=== PATIENT | female | born 1955 | race Caucasian/White ===

== ENCOUNTER → 2017-02-01 | Outpatient (CLI) | payer OTHER | LOC: FIMAGING 08:03 | PROVIDERS: ATTEND Physical Medicine & Rehabilitation | DX: M46.1 Sacroiliitis, not elsewhere classified (principal); M51.36 Other intervertebral disc degeneration, lumbar region; M51.26 Other intervertebral disc displacement, lumbar region; R60.0 Localized edema ==

== ENCOUNTER → 2017-02-08 | Outpatient (CLI) | payer OTHER | LOC: FIMAGING 14:18 | PROVIDERS: ATTEND Physical Medicine & Rehabilitation | DX: M81.0 Age-related osteoporosis without current pathological fracture (principal) ==

== ENCOUNTER 2017-04-16 10:31 | Observation (INO) | payer OTHER ==
[2017-04-16] MEDS ORDERED: ONDANSETRON 4 MG/2 ML VIAL IVP ONE (10:45)
[2017-04-16] MEDS ORDERED: ONDANSETRON 4 MG/2 ML VIAL ONE (10:45)
--- NOTE | 2017-04-16 10:45 | EDPHY ---
H & P Stated Complaint: Pain under left shoulder blade, N/V Source: Patient Exam Limitations: No limitations - Personal History Current Tetanus Diphtheria and Acellular Pertussis (TDAP): Yes - Medical/Surgical History Hx Asthma: No Hx Chronic Respiratory Disease: No Hx Diabetes: No Hx Cardiac Disease: No Hx Renal Disease: No Hx Cirrhosis: No Hx Alcoholism: No Hx HIV/AIDS: No Hx Splenectomy or Spleen Trauma: No Other PMH: reflux Asthma - Social History Smoking Status: Never smoked HPI/ROS: CHIEF COMPLAINT: Back pain HISTORY OF PRESENT ILLNESS: Patient complains of sudden onset of pain on the left scapula. This happened within the past hour. This was while at a chiropractor appointment, having acupuncture and adjustments performed. Adjustments on the thoracolumbar spine but not the cervical spine. She had acupuncture needles in the back but she does not know exactly where they were. No acupuncture needles on the chest. It was a sudden onset pain. Constant duration. Moderate to severe. Diaphoretic with nausea but no vomiting. Some shortness of breath. No neck pain. No headache. No dizziness. No other associated complaints or modifying factors. REVIEW OF SYSTEMS: Ten systems reviewed and are negative unless otherwise noted in the HPI PAST MEDICAL HISTORY: "GI issues," for which she is seen at [facility] in [place]. Hypertension on losartan PAST SURGICAL HISTORY: None SOCIAL HISTORY: Nonsmoker. Lives independently with her spouse FAMILY HISTORY: Noncontributory EXAMINATION General Appearance: Alert, no distress, diaphoretic and in obvious discomfort Head: normocephalic, atraumatic Eyes: Pupils equal and round, no conjunctival pallor or injection ENT, Mouth: Mucous membranes moist are patent Neck: Normal inspection, supple, non-tender Respiratory: Lungs are clear to auscultation. No diminishment. No consolidation. No retractions or distress Cardiovascular: Regular rate and rhythm. No murmur. Right radial pulses 2+. Left radial pulses 1+. Gastrointestinal: Abdomen is soft and nontender Back: non-tender, no bony abnormalities Neurological: A&O, nonfocal, normal gait Skin: Warm and dry, no rash. No petechiae or purpura Extremities: Nontender, no pedal edema Psychiatric: Mood and affect normal DIFFERENTIAL DIAGNOSES: Including but not limited to musculoskeletal pain, ACS, pneumonia, pneumothorax , PE, aortic dissection, aortic aneurysm MDM: 10:40 a.m. Sudden onset of left-sided back pain under the scapula. This was after acupuncture and chiropractic treatment. No adjustments were performed on the neck. It just was on the thoracic and lumbar spine. She does not have any needles applied to the chest. She is Diaphoretic and in obvious discomfort. EKG is unremarkable for any ischemia. I recognize that the patient is in obvious discomfort, thus Chest x-ray is ordered stat. Laboratory studies pending. Pain medication ordered stat. She is awake and alert and conversing appropriately despite her obvious discomfort. 10:55 a.m. Chest x-ray as read by me reveals no obvious pneumothorax or acute findings. I have ordered CT angio of the chest due to significant level of pain despite IV morphine. There may be a subtle difference in the radial pulses. senior technical support engineer will be contacted at this time for the patient to be taken to the scanner stat period. creatinine is 1.0 by blood gas performed here. 11:25 a.m. Notified by RN that the patient is requesting to be pretreated due to a iodine allergy from her father 30 years ago. I discussed this with the patient. She has never had IV contrast. She has never had a reaction to iodine or shellfish. I discussed the nature of the IV contrast has changed significantly the past 30 years. I did offer pretreatment but informed her that it may delayed her diagnoses. We discussed at length for 10 minutes and she is comfortable with proceeding with scan without pretreatment. I do not feel that she warrants pretreatment for the CT scan. 12:14 p.m. Notified by radiologist Dr. Diaz. CT reveals small left-sided pneumothorax. There are chronic changes as noted without any other acute findings. These findings were relayed to the patient. These findings were discussed with Dr. Mayers. I will also contact trauma surgeon for consultation and care. 12:20 p.m. Case discussed with Trauma surgery Dr. Hutchinson. He has requested a repeat chest x -ray to evaluate for presence on plain film. He has requested oxygen by nasal cannula. He will evaluate the patient shortly in the emergency department. 12:55 p.m. Repeat portable chest x-ray does now reveal a small, left-sided apical thorax. Patient remains awake alert no acute distress. Oxygenation is greater than 90% on room air but she remains on 4 L nasal cannula. 1:[address] Dee is at bedside evaluating the patient 1:20 p.m. Patient has been admitted to Dr. Dee. No chest thoracostomy indicated at this time per him. He will admit for observation monitor. At time of admission, she is resting comfortably in no acute distress. EKG interpretation: Dr. Mayers Sinus rhythm without acute ischemia. No previous comparison (Alok Osorio) Constitutional: Initial Vital Signs Temperature (C) 36.7 C 04/16/17 10:31 Heart Rate 53 L 04/16/17 10:31 Respiratory Rate 19 04/16/17 10:31 Blood Pressure 93/55 L 04/16/17 10:31 O2 Sat (%) 92 04/16/17 10:31 O2 Delivery Mode Nasal Cannula O2 (L/minute) 4 Allergies/Adverse Reactions: No Known Allergies Allergy (Unverified 01/09/14 10:05) Home Medications: Medication Instructions Recorded DEXILANT 01/09/14 Medical Decision Making - Diagnostics Imaging Results: Imaging Impressions Chest X-Ray 04/16/17 10:45 Impression: 1. No acute pulmonary disease. 2. Consider chest two views when the patient's medical condition permits. Chest/Thorax CTA 04/16/17 10:57 Impression: 1. Small left pneumothorax without evidence of tension. 2. Hiatal hernia with thickening of the distal esophagus that could be related to esophagitis, but is nonspecific. Endoscopy may be useful for further evaluation if this has not been recently evaluated. 3. Diffuse fatty infiltration of the liver. 4. No visible pulmonary embolus or aortic dissection. 5. Old/subacute unfused posterolateral left 10th and 11th rib fractures. 6. Additional findings as above. Findings discussed with Alok Osorio PA-C on March at 1214 hours. Chest X-Ray 04/16/17 12:20 Impression: 1. Small left apical pneumothorax. 2. No mediastinal shift. ED Course/Re-evaluation: 11:00 a.m.-this patient was seen and examined by me. 61-year-old female with a history of hypertension presents with sudden onset of left sided thoracic pain, with near syncope and nausea, soon after acupuncture to her upper back. Lungs are clear to auscultation, Cardiovascular regular rhythm and rate, Stat EKG reveals no evidence of ischemia or dysrhythmia. Portable chest x-ray reveals no evidence of pneumothorax or pneumonia. Stat CT scan of the chest ordered to rule out dissection vs small PTX. (Margie Mayers) Differential Diagnosis: Differential diagnosis includes though it is not limited to pneumonia, pulmonary embolism, aortic dissection, pericarditis, acute coronary syndrome. ( Margie Mayers) - Data Points Laboratory Results: Laboratory Results 04/16/17 10:45 04/16/17 10:45 04/16/17 04/16/17 04/16/17 10:45 10:45 10:45 WBC 7.18 10^3/uL 10^3/uL (3.80-9.50) RBC 4.08 10^6/uL L 10^6/uL (4.18-5.33) Hgb 13.3 g/dL g/dL (12.6-16.3) POC Hgb Hct 39.1 % % (38.0-47.0) POC Hct MCV 95.8 fL fL (81.5-99.8) MCH 32.6 pg pg (27.9-34.1) MCHC 34.0 g/dL g/dL (32.4-36.7) RDW 12.9 % % (11.5-15.2) Plt Count 314 10^3/uL 10^3/uL (150-400) MPV 10.8 fL fL (8.7-11.7) Neut % (Auto) 50.9 % % (39.3-74.2) Lymph % (Auto) 39.7 % % (15.0-45.0) [place] % (Auto) 5.0 % % (4.5-13.0) Eos % (Auto) 3.8 % % (0.6-7.6) Baso % (Auto) 0.3 % % (0.3-1.7) Nucleat RBC Rel Count 0.0 % % (0.0-0.2) Absolute Neuts (auto) 3.66 10^3/uL 10^3/uL (1.70-6.50) Absolute Lymphs (auto) 2.85 10^3/uL 10^3/uL (1.00-3.00) Absolute Monos (auto) 0.36 10^3/uL 10^3/uL (0.30-0.80) Absolute Eos (auto) 0.27 10^3/uL 10^3/uL (0.03-0.40) Absolute Basos (auto) 0.02 10^3/uL 10^3/uL (0.02-0.10) Absolute Nucleated RBC 0.00 10^3/uL 10^3/uL (0-0.01) Immature Gran % 0.3 % % (0.0-1.1) Immature Gran # 0.02 10^3/uL 10^3/uL (0.00-0.10) PT 12.3 SEC SEC (12.0-15.0) INR 0.92 (0.83-1.16) APTT 22.0 SEC L SEC (23.0-38.0) POC Sodium Sodium 139 mEq/L mEq/L (134-144) POC Potassium Potassium 4.1 mEq/L mEq/L (3.5-5.2) POC Chloride Chloride 105 mEq/L mEq/L (97-110) Carbon Dioxide 20 mEq/l L mEq/l (22-31) Anion Gap 14 mEq/L mEq/L (8-16) POC BUN BUN 15 mg/dL mg/dL (7-23) Creatinine 0.9 mg/dL mg/dL (0.6-1.0) POC Creatinine Estimated GFR > 60 Glucose 105 mg/dL H mg/dL (70-100) POC Glucose Calcium 9.3 mg/dL mg/dL (8.5-10.4) Troponin I < 0.012 ng/mL ng/mL (0.000-0.034) NT-Pro-B Natriuret Pep 42 pg/mL pg/mL (0-125) Lipase 116 IU/L IU/L (23-300) 04/16/17 10:43 WBC RBC Hgb POC Hgb 14.6 gm/dL gm/dL (12.6-16.3) Hct POC Hct 43 % % (38-47) MCV MCH MCHC RDW Plt Count MPV Neut % (Auto) Lymph % (Auto) [place] % (Auto) Eos % (Auto) Baso % (Auto) Nucleat RBC Rel Count Absolute Neuts (auto) Absolute Lymphs (auto) Absolute Monos (auto) Absolute Eos (auto) Absolute Basos (auto) Absolute Nucleated RBC Immature Gran % Immature Gran # PT INR APTT POC Sodium 141 mEq/L mEq/L (134-144) Sodium POC Potassium 3.8 mEq/L mEq/L (3.3-5.0) Potassium POC Chloride 105 mEq/L mEq/L (97-110) Chloride Carbon Dioxide Anion Gap POC BUN 15 mg/dL mg/dL (7-23) BUN Creatinine POC Creatinine 1.0 mg/dL mg/dL (0.6-1.0) Estimated GFR Glucose POC Glucose 111 mg/dL H mg/dL (70-100) Calcium Troponin I NT-Pro-B Natriuret Pep Lipase Medications Given: Discontinued Medications Diphenhydramine HCl (Benadryl Injection) 25 mg IVP EDNOW ONE Stop: 04/16/17 12:00 Last Admin: 04/16/17 12:01 Dose: 25 mg Hydromorphone HCl (Dilaudid) 0.5 mg IVP EDNOW ONE Stop: 04/16/17 10:58 Last Admin: 04/16/17 11:01 Dose: 0.5 mg Sodium Chloride (Ns) 1,000 mls @ 0 mls/hr IV EDNOW ONE; Wide Open PRN Reason: Protocol Stop: 04/16/17 10:58 Last Admin: 04/16/17 11:01 Dose: 1,000 mls Morphine Sulfate (Morphine) 4 mg IVP EDNOW ONE Stop: 04/16/17 10:46 Last Admin: 04/16/17 10:49 Dose: 4 mg Ondansetron HCl (Zofran) 4 mg IVP EDNOW ONE Stop: 04/16/17 10:46 Last Admin: 04/16/17 10:49 Dose: 4 mg Point of Care Test Results: 04/16/17 10:43 POC Sodium 141 POC Potassium 3.8 POC Chloride 105 POC BUN 15 POC Creatinine 1.0 POC Glucose 111 H Departure - Departure Disposition: [facility] Inpatient Acute Clinical Impression: Pneumothorax, left Condition: Good
[2017-04-16] MEDS ORDERED: HYDROmorphONE/DILAUDID 1 MG/ML INJ IVP ONE (10:57)
[2017-04-16] MEDS ORDERED: NS 1,000 ML IV ONE (10:57)
[2017-04-16] MEDS ORDERED: HYDROmorphONE/DILAUDID 1 MG/ML INJ ONE (10:58)
[2017-04-16 10:59] LABS: % IMMATURE GRANULYOCYTES 0.3 % (0.0-1.1); ABSOLUTE IMMATURE GRANULOCYTES 0.02 10^3/uL (0.00-0.10); ADD DIFF? NO; ADD MORPH? NO; ADD SCAN? NO; ATYPICAL LYMPHOCYTE FLAG 0 (0-99); FRAGMENT RBC FLAG 0 (0-99); HEMATOCRIT 39.1 % (38.0-47.0); HEMOGLOBIN 13.3 g/dL (12.6-16.3); LEFT SHIFT FLG 0 (0-99); LIPEMIA HEMOLYSIS FLAG 90 (0-99); MEAN CELL HEMOGLOBIN 32.6 pg (27.9-34.1); MEAN CELL VOLUME 95.8 fL (81.5-99.8); MEAN PLATELET VOLUME 10.8 fL (8.7-11.7); PLATELET CLUMPS FLAG 30 (0-99); PLATELET COUNT 314 10^3/uL (150-400); RED BLOOD CELL COUNT 4.08 10^6/uL (4.18-5.33); RED CELL DISTRIBUTION WIDTH 12.9 % (11.5-15.2)
[2017-04-16 11:07] LABS: ANION GAP 14 mEq/L (8-16); CALCIUM 9.3 mg/dL (8.5-10.4); CARBON DIOXIDE 20 mEq/l (22-31); CHLORIDE 105 mEq/L (97-110); CREATININE 0.9 mg/dL (0.6-1.0); GLOMERULAR FILTRATION RATE > 60; GLUCOSE 105 mg/dL (70-100); POTASSIUM 4.1 mEq/L (3.5-5.2); SODIUM 139 mEq/L (134-144)
[2017-04-16] MEDS ORDERED: IOPAMIDOL (ISOVUE 370) 100 ML BTL IV ONE (11:07)
[2017-04-16 11:11] LABS: INR 0.92 (0.83-1.16); PROTIME(PATIENT) 12.3 SEC (12.0-15.0)
[2017-04-16 11:19] LABS: TROPONIN I < 0.012 ng/mL (0.000-0.034)
[2017-04-16] MEDS ORDERED: ONDANSETRON DISINTEGRATING 4 MG TAB PO PRN (13:50)
[2017-04-16] MEDS ORDERED: LR 1,000 ML IV SCH (14:00)
--- NOTE | 2017-04-16 14:48 | PDGENHP ---
History and Physical History and Physical: 61 y/o female with multiple medical problems and hx ankylosing spondylitis presented with a small left pneumothorax 1 hr after "accupuncture" treatment . The pneumothorax is small and only mildly symptomatic. I recommended admission for observation and serial CXR + supplemental oxygen. Hospitalist consult requested. Full note dictated.
--- NOTE | 2017-04-16 15:55 | GHP ---
[f rep st] HISTORY AND PHYSICAL DATE OF ADMISSION: 04/16/2017 CHIEF COMPLAINT: Left-sided chest pain. HISTORY OF PRESENT ILLNESS: The patient is a 61-year-old female with chronic back pain due to ankylosing spondylitis. She was at her chiropractor's office when he performed a manipulation of her thoracic spine, and then performed acupuncture at approximately the L2 level. She felt fine when she left the office, went to [facility] to machine pecan picker some prescriptions, and began feeling nauseated, lightheaded, and had some pain in her chest. Her picked her up at [facility] and brought to the emergency room, where she was seen evaluated by Alok Osorio PA-C, and a chest x-ray was obtained, which showed no pneumothorax. Because of her persistent symptoms, a CT scan was performed, which showed a small left pneumothorax, and a Surgical consultation was requested. In the interim, the patient has received abundant intravenous narcotics, and had a repeat chest x-ray, which now shows a small left apical pneumothorax on plain film. Currently, the patient is resting comfortably. She is accompanied by her daughter and her . Her mother and her father, and other family members, are in attendance. The patient denies any history of recent trauma. No prior history of spontaneous pneumothorax. She is a nonsmoker. PAST MEDICAL HISTORY: Significant for ankylosing spondylitis, hypertension, chronic gastroesophageal reflux disease, reactive airway disease, methyltetrahydrofolate reductase deficiency, obesity, anxiety. ALLERGIES: She has allergies to adhesive. Levaquin causes nausea. She had an adverse reaction to Humira which caused ulcerative esophagitis. PAST SURGICAL HISTORY: Previous surgeries include ovarian cystectomy, trigger finger release on the left hand, bilateral carpal tunnel surgery, bilateral knee surgery for meniscus tears, fall with left sided rib fractures in 2010. SOCIAL HISTORY: She is a lifelong nonsmoker. Does not use recreational drugs or significant alcohol. The patient is , accompanied by her and her daughter, who is a lead generation representative. 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 FAMILY HISTORY: Noncontributory. REVIEW OF SYSTEMS: Significant for hiatal hernia, gastroesophageal reflux disease, which is chronic. She has been told that she has esophageal dysmotility. She has had a negative colonoscopy at age 51 and has had esophagogastroduodenoscopy twice, most recently this year, when she was found to have significant esophageal ulcerations, which were ultimately felt secondary to Humira in addition to her gastroesophageal reflux disease. PHYSICAL EXAMINATION: GENERAL: A pleasant woman who has been treated with narcotics and is having some difficulty in focusing on questions. VITAL SIGNS: Her blood pressure is 115/85, heart rate is 87, respiratory rate is 16, O2 saturation is 99% on 4 L, temperature is 36.6. NECK AND BACK: Supple without cervical, thoracic, or lumbar tenderness over the spinous processes. She has some left paravertebral tenderness at the site of her acupuncture. CHEST: There is no tenderness to compression of the chest anteriorly or laterally. HEENT: Trachea is midline. Pupils are 2 mm, round reactive to light. LUNGS: Clear with diminished breath sounds on the left. HEART: Regular in rate and rhythm without murmurs. ABDOMEN: Soft, nontender, with mild hepatomegaly. Liver edge is palpable 2 cm below the costal margin. PELVIS: Stable to anterior and lateral compression. EXTREMITIES: No pitting edema. Full range of motion without deformity or injury. IMAGING STUDIES: Reviewed. Initial chest x-ray showed perhaps a small, tiny apical pneumothorax. In retrospect, a 2nd chest x-ray after her CT scan was performed, showed approximately 5% left pneumothorax. The chest CT showed a small left pneumothorax, a hiatal hernia with thickening of the distal esophagus , diffuse fatty infiltration of the liver, no evidence of pulmonary embolus or aortic dissection, old subacute (but not fused) posterolateral rib fractures of the 10th and 11th ribs. LABORATORY STUDIES: WBC is 7.18, hemoglobin 13.3, hematocrit is 39.1, platelets are 314,000. PTT was 22, INR 0.92 with a PT of 12.3. Sodium was 139 , potassium 4.1, bicarb 20, chloride 105, BUN was 15, creatinine 0.9, glucose 105. Troponin less than 0.012, lipase 116, calcium 9.3. IMPRESSION: 1. Left pneumothorax secondary to iatrogenic penetrating injury. 2. Old, unhealed left 10th and 11th rib fractures. 3. History of ankylosing spondylitis. 4. Hypertension. 5. Hiatal hernia. 6. Gastroesophageal reflux disease with recent erosive esophagitis. 7. Reactive airway disease. RECOMMENDATIONS: The patient will be admitted now for observation and serial chest x-rays, supplemental oxygen, and O2 saturation monitoring. If patient's pneumothorax enlarges, she may require a closed tube thoracostomy. I discussed this with the patient and her family, in particular her daughter, who is an emergency lead generation representative and understands the significance of the problem. I advised her not to engage in any air travel for the next 4-6 weeks. I advised her not to sing in a service at her pentecostalism this coming week for Radha Claros. /[id number]/MODL MTDD
--- NOTE | 2017-04-16 15:58 | CPEKG ---
Heart Rate: 80 RR Interval: 750 P-R Interval: 176 QRSD Interval: 86 QT Interval: 372 QTC Interval: 430 P [place]: 55 QRS [place]: 109 T Wave [place]: 15 EKG Severity - OTHERWISE NORMAL ECG - EKG Impression: SINUS RHYTHM EKG Impression: RIGHT AXIS DEVIATION EKG Impression: early transition across the precordium Electronically Signed By: Channing Martinez 17-Apr-2017 17:23:36
[2017-04-16] MEDS ORDERED: [UNRECOGNIZED DRUG - OTHER] IH PRN (16:07)
[2017-04-16] MEDS ORDERED: ALPRAZolam 0.5 MG TAB PO PRN (16:07)
[2017-04-16] MEDS ORDERED: BUDESONIDE 0.5 MG/2 ML AMPUL.NEB IH PRN (16:07)
[2017-04-16] MEDS ORDERED: LEVALBUTEROL 1.25 MG/3 ML DEYVIAL IH PRN (16:07)
[2017-04-16] MEDS ORDERED: BECLOMETHASONE QVAR 80 MDI IH PRN (16:07)
[2017-04-16] MEDS ORDERED: POTASSIUM CL 10 MEQ TAB PO PRN (16:07)
[2017-04-16] MEDS ORDERED: LEVALBUTEROL INHALER 200 PUFFS/15 GM MDI IH PRN (16:07)
[2017-04-16] MEDS ORDERED: BUDESONIDE/FORMOTEROL 160/4.5 60 PUFFS/MDI IH PRN (16:07)
[2017-04-16] MEDS ORDERED: ALBUTEROL 60 PUFFS/8 GM MDI IH PRN (16:07)
[2017-04-16] MEDS ORDERED: MUPIROCIN 2% 22 GM OINT TP PRN (16:07)
[2017-04-16] MEDS ORDERED: TRIAMCINOLONE 0.5% 15GM CREAM TP PRN (16:07)
[2017-04-16] MEDS ORDERED: SODIUM CHLORIDE FOR INHALATION IH PRN (16:07)
[2017-04-16] MEDS ORDERED: BENZONATATE 100 MG CAP PO PRN (16:07)
[2017-04-16] MEDS ORDERED: PROMETHAZINE HCL 25 MG TAB PO PRN (16:07)
[2017-04-16] MEDS ORDERED: ALBUTEROL 3 ML DEYVIAL IH PRN (16:07)
[2017-04-16] MEDS: traMADol 50 MG TAB PO PRN (16:17)
[2017-04-16] MEDS ORDERED: ALBUTEROL 200 PUFFS/18 GM MDI IH PRN (17:00)
[2017-04-16] MEDS: BACLOFEN 10 MG TAB PO SCH (19:14)
[2017-04-16] MEDS ORDERED: NALTREXONE 4.5 MG PO SCH (21:00)
[2017-04-16] MEDS ORDERED: BACLOFEN 10 MG TAB PO SCH (22:00)
[2017-04-16 23:00] VITALS: TEMP 98.4
[2017-04-17] MEDS: traMADol 50 MG TAB PO PRN ×2 (00:14→08:50)
[2017-04-17] MEDS: ACYCLOVIR 400 MG TAB PO SCH ×2 (00:15→10:05)
[2017-04-17] MEDS: DICLOFENAC SODIUM 1% 100 GM GEL TP SCH ×3 (00:25→13:24)
[2017-04-17] MEDS ORDERED: ALPRAZolam 0.25 MG TAB PO PRN (00:30)
--- NOTE | 2017-04-17 01:30 | GCON ---
[f rep st] CONSULTATION HOSPITALIST CONSULTATION CHIEF COMPLAINT: Left-sided back pain. HISTORY OF PRESENT ILLNESS: This is a 61-year-old female with history of ankylosing spondylitis kavin sauceda in March of 2016, who had been on Humira until November, which was stopped due to the developmen t of esophageal ulcers. She is not currently on treatment for her . Today, she went to see her iropractor for treatment of her chronic back pain, presumably from her ankylosing spondylitis. She r eceived some dry needling technique to her low back. After the procedure, the patient said that she felt very nauseous and had some sweats. She felt like she was going to faint. She called her mario alberto marks, who brought her to the emergency department for further evaluation where she was found to have a s mall left pneumothorax without evidence of tension pneumothorax. During the time of my exam, the pat lynne states her pain is better and is described as a 4/10 pain around her shoulder blade. Nothing ma kes it better or worse. She denies any other acute medical complaints. PAST MEDICAL HISTORY: 1. Ankylosing spondylitis. 2. Hypertension. 3. Asthma. 4. Cricopharyngeal dysfunction. 5. Some esophageal dysmotility. MEDICATIONS: Reviewed. Refer to [facility] for details. ALLERGIES: No known drug allergies. SOCIAL HISTORY: She denies any alcohol, tobacco or illicit drug use. FAMILY HISTORY: Reviewed and noncontributory. Both of her parents are living and in their 90s. REVIEW OF SYSTEMS: Comprehensive 10-point review of systems was done and was negative except for as mentioned in the HPI. PHYSICAL EXAMINATION: VITAL SIGNS: Blood pressure 118/69, pulse of 85, respiratory rate 16, O2 satu ration 96% on 2 L. Temperature afebrile. GENERAL: No acute distress. HEART: S1, S2. LUNGS: Keanu ar. No wheezes, rales, or rhonchi. Normal breath sounds. No respiratory distress. ABDOMEN: Soft, nontender, nondistended. No guarding or rebound tenderness. Normoactive bowel sounds. EXTREMITIES : No clubbing or cyanosis. NEURO: Cranial nerves 2-12 grossly intact. No focal motor or sensory d eficits. SKIN: Clear. No rashes. DIAGNOSTICS: WBC 7, hemoglobin 13, hematocrit 39, platelets 314. Sodium 139, potassium 4.1, chlorid e 105, CO2 of 20, BUN 15, creatinine 0.9, glucose 105. Troponin was negative. CT of the chest was reviewed showing a small left pneumothorax is a hiatal hernia with thi ckening in the distal esophagus, possibly representing esophagitis. Please refer to report for full details. Initial chest x-ray, which I visualized and personally interpreted, revealed normal cardiac silhouett e. No pneumonia, no pleural effusion or pneumothorax. ASSESSMENT AND PLAN: This is a 61-year-old female with history of ankylosing spondylitis. Underwent dry needle procedure by her chiropractor today. Presenting with left-sided back pain and sweating. Found to have 1. Small pneumothorax. Agree with observation care per General Surgery. Monitor oxygen saturations . 2. History of ankylosing spondylitis. Not currently on medication. The patient does follow with Dr Carmen Hamilton, who has recommended that she start medication that is not currently covered by her insuran ce. She does share with me that she would need to try Enbrel, which she is considering. 3. Esophageal thickening seen on CAT scan. Recommend that this be followed up and reviewed with her primary care provider. I did not discuss this finding with the patient. I will ask my covering col league to see if she has had a recent upper endoscopy. 4. Thank you for allowing me to participate in the care of this patient. The hospitalist service will c david to follow along with you. /[id number]/MODL
[2017-04-17] MEDS: BACLOFEN 10 MG TAB PO SCH ×2 (06:47→13:24)
[2017-04-17 08:03] VITALS: BP 117/70; PULSE 67; RESP 16
--- NOTE | 2017-04-17 08:25 | TRAUMAPN ---
Assessment/Plan: 61-year-old female status post iatrogenic left pneumothorax Tertiary exam Neuro: Alert oriented, nonfocal, Pain controlled Pulm: Still on supplemental oxygen but saturating well on room air. Pneumothorax has essentially resolved CV: Hemodynamically stable Abdomen: Soft nondistended nontender Renal: Voiding Heme: Stable Id: Afebrile Ortho: Not applicable Dispo pneumothorax has resolved, patient very concerned about singing for her Christian this weekend, discussed abstinence of strenuous activity and going to altitude. Home later today Subjective: Small amount of residual left shoulder pain no issues with breathing Objective: Vital Signs Temp Pulse Resp BP Pulse Ox 36.9 C 67 16 117/70 100 04/16/17 22:59 04/17/17 08:02 04/17/17 08:02 04/17/17 08:02 04/17/17 08:02 04/16/17 04/17/17 04/18/17 05:59 05:59 05:59 Intake Total 1900 Balance 1900 PT 12.3 SEC (12.0-15.0) 04/16/17 10:45 INR 0.92 (0.83-1.16) 04/16/17 10:45
[2017-04-17] MEDS: PANTOPRAZOLE SODIUM 40 MG TAB PO SCH ×2 (08:44→08:50)
[2017-04-17] MEDS: LANSOPRAZOLE SUSP 3 MG/ML UDSYR (Peds) PO SCH ×2 (08:56)
[2017-04-17] MEDS ORDERED: Herbals/Supplements -Info Only PO SCH (09:00)
[2017-04-17] MEDS ORDERED: CHOLECALCIFEROL VIT D3 2,000 UNITS TAB/CAP PO SCH (09:00)
[2017-04-17] MEDS ORDERED: NON-FORMULARY NEW DRUG (Losartan Potassium [Cozaar] 100 MG) PO SCH (09:00)
[2017-04-17] MEDS ORDERED: LOSARTAN POTASSIUM 50 MG TAB PO SCH (09:00)
[2017-04-17] MEDS ORDERED: MONTELUKAST SODIUM 10 MG TAB PO SCH (09:00)
[2017-04-17] MEDS ORDERED: ENOXAPARIN 40 MG/0.4 ML SYR SC SCH (09:00)
[2017-04-17 12:48] VITALS: O2SAT 92
--- NOTE | 2017-04-17 13:26 | PDDCSUM ---
Discharge Summary Discharge Summary: DISCHARGE SUMMARY Date of Admission April 16 Date of Discharge April 17 DISCHARGE DIAGNOSES -iatrogenic pneumothorax HOSPITAL COURSE The patient was admitted from the ED where she presented with left-sided chest discomfort status post acupuncture at the chiropractor's office. Imaging at that time included a chest x-ray and CT scan which confirmed a left-sided pneumothorax. She was placed on supplemental oxygen therapy and monitored him patient. On day of discharge, the patient's pneumothorax had essentially resolved along with her symptoms. She was subsequently discharged home in stable condition on the afternoon of the off of oxygen. She will follow up with her primary care in 1 week DISCHARGE MEDICATIONS All home medications restarted, no new medications DISPOSITION Home FOLLOW UP Follow up with her primary care physician within the next week, can follow up with Dr. Andrea Dee in the office if continues to have questions or concerns
--- NOTE | 2017-04-17 16:40 | ASDISCHSUM ---
Discharge Information Plan Status:Home with No Needs Medically Cleared to Leave:04/17/2017 Discharge Date:04/17/2017 02:05 PM D/C Disposition: ADT D/C Disposition:Home, Routine, Self-Care Projected Discharge Date:04/17/2017 12:00 AM Transportation at D/C: Discharge Delay Reason: Follow-Up Date:04/17/2017 12:00 AM Discharge Slot: Final Diagnosis: Placement Information Patient Contact Information Contact Name:ADILSON Relationship: Address:[address] City:[place] Alternate Phone: [facility]/Zip Code:[place] [address] Email: Financial Information Financial Class:HMO and PPO Plans Primary Plan Desc:[facility] [facility] Primary Plan Number:[id number] Secondary Plan Desc: Secondary Plan Number: Assessment Information Intervention Information
[2017-04-17] MEDS ORDERED: NALTREXONE 4.5 MG PO SCH (21:00)
--- NOTE | 2017-04-18 08:52 | CPEKG ---
Heart Rate: 51 RR Interval: 1176 P-R Interval: 160 QRSD Interval: 92 QT Interval: 456 QTC Interval: 420 P [place]: 42 QRS [place]: 19 T Wave [place]: 47 EKG Severity - NORMAL ECG - EKG Impression: SINUS RHYTHM Electronically Signed By: Ashutosh Neal 18-Apr-2017 09:14:13
== END 2017-04-17 14:05 | disposition home or self-care (01) ==
LOC: F2W 13:58 → UNDODISOB 04-17 13:33
PROVIDERS: ADMIT Surgery; ATTEND Surgery
DX: J95.811 Postprocedural pneumothorax (principal); M45.0 Ankylosing spondylitis of multiple sites in spine
CPT/HCPCS: 71010; 71275; 93005; 96374; 96375; 97165; 99285; G0378; 82947-QW; J1170; J1200; J1650; J2405; Q9967

== ENCOUNTER → 2017-04-24 | Outpatient (CLI) | payer OTHER | LOC: FLAB 17:21 | PROVIDERS: ATTEND Family Medicine | DX: J95.811 Postprocedural pneumothorax (principal) ==

== ENCOUNTER → 2017-07-10 | Outpatient (CLI) | payer OTHER | LOC: BMCIMAGING 14:11 | PROVIDERS: ATTEND Podiatrist Foot & Ankle Surgery | DX: M89.371 Hypertrophy of bone, right ankle and foot (principal); M24.174 Other articular cartilage disorders, right foot; M24.175 Other articular cartilage disorders, left foot; M20.11 Hallux valgus (acquired), right foot; M20.12 Hallux valgus (acquired), left foot ==

== ENCOUNTER → 2017-07-11 | Outpatient (CLI) | payer OTHER | LOC: FIMAGING 16:15 | PROVIDERS: ATTEND Podiatrist Foot & Ankle Surgery | DX: M21.752 Unequal limb length (acquired), left femur (principal); M21.42 Flat foot [pes planus] (acquired), left foot ==

== ENCOUNTER → 2017-08-01 | Outpatient (CLI) | payer OTHER | LOC: FIMAGING 11:33 | PROVIDERS: ATTEND Family Medicine | DX: N64.4 Mastodynia (principal) ==

== ENCOUNTER → 2018-10-31 | Outpatient (CLI) | payer OTHER | LOC: GIMAGING 11:40 → EDSTATUS 15:58 | PROVIDERS: ATTEND Family Medicine | DX: R05 Cough (principal) | CPT/HCPCS: 71046-PO ==